=== PATIENT | male | born 1950 | race Caucasian/White ===

== ENCOUNTER → 2019-12-03 15:01 | Outpatient (BNVA) | payer MEDICARE, MEDICAID, SELFPAY | PROVIDERS: Family Provider Nurse Practitioner Family; PCP Nurse Practitioner Family; Visit Provider Family Medicine | DX: R05 Cough (principal); J10.1 Influenza due to other identified influenza virus with other respiratory manifestations; J44.9 Chronic obstructive pulmonary disease, unspecified | CPT/HCPCS: 71046; 87804 ==

== ENCOUNTER 2020-07-06 10:43 | Observation (INO) | payer MEDICARE, MEDICAID, SELFPAY ==
[2020-07-06] VITALS (13 sets, daily range): BP systolic 104–124; BP diastolic 54–80; PULSE 71–90; RESP 17–22; TEMP 36.7–36.9; O2SAT 84–100; BMI 20.2
--- NOTE | 2020-07-06 10:49 | ECG_ITS ---
[facility] Test Date: 2020-07-06 Pat Name: Andre Ramon Department: Room: Gender: Male Print Washer: : 1950 Requested By: Jarad Coffman Order Number: [id number] Michael MD: Eben Flores M.D. Measurements Intervals [place] Rate: 88 P: 85 CT: 143 QRS: -74 QRSD: 128 T: 85 QT: 354 QTc: 429 Interpretive Statements SINUS RHYTHM WITH SINUS ARRHYTHMIA RIGHT BUNDLE BRANCH BLOCK [120+ ms QRS DURATION, UPRIGHT V1, 40+ ms S IN I/aVL/V4/V5/V6] LEFT ANTERIOR FASCICULAR BLOCK [QRS AXIS <= -45, QR IN I, RS IN II] POSSIBLE SEPTAL MYOCARDIAL INFARCTION , PROBABLY OLD [30 ms Q WAVE IN V1/V2] Compared to ECG 05/26/2019 21:24:38 Right bundle-branch block now present Myocardial infarct finding now present Ventricular premature complex(es) no longer present Electronically Signed On 07-06-2020 20:53:54 CDT by Eben Flores M.D. [id number]
--- NOTE | 2020-07-06 10:50 | XR_ITS ---
WS: [id number] CHEST XRAY TECHNIQUE: Portable chest. CLINICAL INFORMATION: dyspnea/cough COMPARISON: December 03, 2019 FINDINGS: Heart: Normal cardiac silhouette. Lungs: Hyperinflation with flattening of the hemidiaphragms. Chronic emphysematous changes. Interstit ial thickening in the left mid and lower lungs. Interstitial infiltrate left lower lobe similar to [facility] 2019. Bones: Normal visualized bony structures. XR/XR chest 1V portable [id number] IMPRESSION: 1. Hyperinflation with emphysematous change and flattening of the hemidiaphrag ms. 2. Interstitial thickening in the left mid and lower lung similar to December 03, 2019. 3. Left lower lobe infiltrate similar in appearance to December 03, 2019 4. No definite new infiltrates.
[2020-07-06 11:11] LABS: ABG PH Result 7.34 (7.35-7.45); Base Excess ABG 9.1 mmol/L (-2.0-2.0); Blood Gas Allen Test Pos; Blood Gas Sample Type Arterial; Carboxyhemoglobin 2.1 %THgb (0.4-20.1); HCO3 ABG 37.7 mmol/L (22-26); HGB O2 Sat 92.9 % (95-100); Ionized Calcium Level - ABG 1.2 mmol/L (1.1-1.4); Methemoglobin 0.7 % (0.4-1.5); Oxygen Saturation ABG 95.6; Potassium Level - ABG 4.3 mmol/L (3.5-5.0)
[2020-07-06 11:12] LABS: Blood Gas Operator Identificat BL; Blood Gas Sample Site Brachial, right; Oxygen Device NC
[2020-07-06 11:13] LABS: ABG PCO2 69.2 mmHg (35-45)
[2020-07-06 11:18] LABS: Basophils % 0.3 %; Eosinophils # 0.1 10^3/uL (0.0-0.8); Eosinophils % 0.5 %; Hematocrit 45.5 % (42.0-52.0); Lymphocytes # 0.9 10^3/uL (0.8-4.8); Lymphocytes % 6.6 %; Mean Corpuscular HGB Conc 30.8 g/dL (30.0-36.0); Mean Corpuscular Hemoglobin 30.1 pg (28.0-34.0); Mean Corpuscular Volume 97.8 fL (80-94); Monocytes # 1.3 10^3/uL (0.2-0.9); Monocytes % 9.9 %; Neutrophils # 10.65 10^3/uL (1.8-7.7); Neutrophils % 82.3 %; Nucleated Red Blood Cells % 0 %; Platelet Count 223 10^3/cmm (130-400); Red Blood Count 4.65 10^6/uL (4.1-5.3); Red Cell Distribution Width 13.2 % (12.1-15.1)
[2020-07-06 11:51] LABS: Alanine Aminotransferase 42 U/L (0-41); Albumin Level 4.2 g/dL (3.5-5.2); Alkaline Phosphatase 147 IU/L (40-130); Anion Gap 11.6 (5-19); Aspartate Amino Transferase 34 U/L (0-40); Blood Urea Nitrogen 9 mg/dL (8-23); Calcium 9.5 mg/dL (8.5-10.5); Carbon Dioxide 35 mmol/L (22-29); Chloride 97 mmol/L (98-107); Globulin 3.1 g/dL (1.3-4.6); Glomerular Filtration Rate 133.2 mL/min (90-130); Glucose 158 mg/dL (65-115); Osmolality Calculated 290 mOsm/kg (285-295); Potassium 4.6 mmol/L (3.5-5.1); Sodium 139 mmol/L (136-145); Total Bilirubin 0.4 mg/dL (0.15-1.2); Total Protein 7.3 g/dL (6.6-8.7)
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
--- NOTE | 2020-07-06 16:30 | PC.NURSE ---
Patient arrived to CSU from ER at 1600. Patient oriented to room and call light. VSS. See physical assessment.
[2020-07-06] MEDS: sodium chloride 0.9% 1,000 ML 50 ML IV (16:33)
[2020-07-06] MEDS: heparin 5,000 unit/mL INJ 1 mL 5000 UNIT SUBCUT (16:36)
[2020-07-06] MEDS: HYDROmorphone 1 mg/mL INJ 1 mL 0.5 MG IVP ×2 (16:37→22:30)
[2020-07-06 16:39] LABS: Lactic Sepsis W/Reflex 2.2 mmol/L (0.5-2.2)
[2020-07-06 18:08] LABS: Reflex Lactate Order REFLEX LACTIC ORDERD
--- NOTE | 2020-07-06 18:29 | PC.NURSE ---
Verbal order received from Dr. Curtis for patient to receive mucomyst and duonebs on q6h schedule. Patient is to receive them alternating so that he is receiving one every 3 hours. RBVO. Physician requests to be notified if patient develops stridor or has increased swelling, RBVO. RT has been notified of medication changes. Nurse to continue to monitor.
[2020-07-06 18:32] LABS: Amphetamines Screen Urine Negative (Negative); Barbiturates Screen Urine Negative (Negative); Benzodiazepines Screen Urine Negative (Negative); Cocaine Screen Urine Negative (Negative); Opiate Screen Urine Negative (Negative); PCP Screen Urine Negative (Negative); THC Screen Urine Positive (Negative)
[2020-07-06 19:18] LABS: Lactic Acid level (Lactate) 2.2 mmol/L (0.5-2.2)
[2020-07-06] MEDS: silver sulfadiazine cream 1% 50 gm 1 APPLIC TOPICAL (19:53)
[2020-07-06] MEDS: ipratropium-albuterol 3 mL Neb INHALATION (22:35)
--- NOTE | 2020-07-06 23:24 | PC.NURSE ---
Spoke with Dr. Belcher regarding patient. He stated if patient becomes confused throughout the night to try him on bipap and see if his mentation improves. Patient is currently alert and oriented x4. Read back verbal order.
[2020-07-07] VITALS (16 sets, daily range): BP systolic 100–133; BP diastolic 60–83; PULSE 67–86; RESP 16–22; TEMP 36.3–36.8; O2SAT 93–100
[2020-07-07] MEDS: heparin 5,000 unit/mL INJ 1 mL 5000 UNIT SUBCUT ×2 (03:54→15:40)
[2020-07-07 04:15] LABS: ABG PH Result 7.32 (7.35-7.45); Arterial Blood Gas Hematocrit 41.8 % (42-52); Base Excess ABG 9.3 mmol/L (-2.0-2.0); Blood Gas Operator Identificat HARKR; Blood Gas Sample Site Brachial, right; Blood Gas Sample Type Arterial; HCO3 ABG 38.5 mmol/L (22-26); Oxygen Device CAG
--- NOTE | 2020-07-07 04:19 | XR_ITS ---
WS: [id number] XR chest 1V portable [id number] REASON FOR EXAM: ASSESS PARENCHYMAL CHANGES FINDINGS: Costophrenic angles are not included on the examination. Marked flattening of the hemidiaphragms. Coarse interstitial changes in both lower lungs with increased lucency in the upper lung zarate most notably on the right. The chest is unchanged compared to the previous examination with no acute abnormality identified. XR/XR chest 1V portable [id number] IMPRESSION: Stable abnormal chest, chronic.
[2020-07-07 05:18] LABS: Basophils % 0.1 %; Hematocrit 46.1 % (42.0-52.0); Hemoglobin 14.2 g/dL (11.7-16.6); Lymphocytes # 0.4 10^3/uL (0.8-4.8); Lymphocytes % 5.2 %; Mean Corpuscular HGB Conc 30.8 g/dL (30.0-36.0); Mean Corpuscular Hemoglobin 29.6 pg (28.0-34.0); Mean Platelet Volume 10.6 fL (7.4-10.4); Monocytes # 0.2 10^3/uL (0.2-0.9); Monocytes % 1.9 %; Neutrophils # 7.27 10^3/uL (1.8-7.7); Neutrophils % 92.4 %; Nucleated Red Blood Cells % 0 %; Platelet Count 213 10^3/cmm (130-400); Red Cell Distribution Width 12.8 % (12.1-15.1); White Blood Count 7.9 10^3/uL (4.0-10.0)
--- NOTE | 2020-07-07 05:36 | PC.NURSE ---
End of shift: Patient states he feels much better and states he feels less swollen. Patient has rested well this shift and has denied any pain. Patient has no needs at this time.
[2020-07-07 05:48] LABS: Magnesium 2.3 mg/dL (1.7-2.3); Phosphorus 4.2 mg/dL (2.5-4.5)
[2020-07-07 05:49] LABS: Anion Gap 14.5 (5-19); Blood Urea Nitrogen 18 mg/dL (8-23); Calcium 9.3 mg/dL (8.5-10.5); Carbon Dioxide 30 mmol/L (22-29); Chloride 97 mmol/L (98-107); Glomerular Filtration Rate 164.4 mL/min (90-130); Glucose 240 mg/dL (65-115); Lactate (Lactic Acid level) 2.8 mmol/L (0.5-2.2); Osmolality Calculated 294 mOsm/kg (285-295); Potassium 4.5 mmol/L (3.5-5.1); Sodium 137 mmol/L (136-145)
[2020-07-07] MEDS: ipratropium-albuterol 3 mL Neb INHALATION ×3 (08:11→21:55)
--- NOTE | 2020-07-07 09:45 | PC.RESP ---
SMOKING CESSATION INFORMATION SENT TO PATIENT.
[2020-07-07 10:02] LABS: ABG PCO2 75.3 mmHg (35-45)
[2020-07-07] MEDS: silver sulfadiazine cream 1% 50 gm 1 APPLIC TOPICAL ×2 (10:58→17:27)
[2020-07-07] MEDS: sodium chloride 0.9% 1,000 ML 50 ML IV (11:04)
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
[2020-07-07] MEDS: tetanus-dipt-pertussis 0.5 mL SDV IM (12:41)
--- NOTE | 2020-07-07 14:05 | PC.CHAP ---
Pastoral Care Encounter/Spiritual Assessment Type of Contact [] Declined senior power plant operator visit [] Patient/Family/Request visit [] Outpatient visit [] Follow-up visit [] Physician referral [] Code/Alert [X] Routine visit [] Staff referral [] Actively dying [] Patient sleeping [] Family support [] [] Out of room [] Palliative care [] [] Receiving care in room [] Pre-surgical visit [] Trauma [] Long length of stay [] ICU visit [] Other: Relational/Emotional Strength [] Patient feels connected with others/family/visitors/staff [] Distress [] Loneliness/isolation [] Abandonment Spirituality of Patient [] Person of Valerie [] Attends Confucianism of their Valerie [] Believes in Prayer [] Reads Bible or Denominational materials [] There are Spiritual issues to be addressed Market Risk Manager Interventions [] Prayer [] Active listening [] Non-anxious presence [] Spiritual/emotional support [] Crisis/trauma care [] Spiritual counseling [] Bereavement support [] Provided bereavement packet [] Provided Bible/devotional materials [] Provided toy/stuffed animal, coloring book to patient or family member [] Provided Communion [] Anointing/[place] [] Salvation [] Completed spiritual assessment [] Other: Impact on Illness or Injury [] Angry [] Fearful [] Anxious [] Often cries [] Exhaustion [] Unable to work [] Unable to attend hinduism [] Unable to walk/stand [] Unable to read [] Unable to drive [] Unable to eat/drink [] Unable to sleep [] Unable to be with family [] Patient intubated [] Other: Summary Time spent with patient
[2020-07-07] MEDS: acetaminophen 325 mg Tablet 650 MG PO ×2 (15:49→23:49)
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
[2020-07-07] MEDS: pantoprazole DR 40 mg Tablet PO (18:15)
[2020-07-08] VITALS (9 sets, daily range): BP systolic 99–131; BP diastolic 64–96; PULSE 64–81; RESP 17–24; TEMP 36.6–36.8; O2SAT 93–99
[2020-07-08] MEDS: HYDROmorphone 1 mg/mL INJ 1 mL 0.5 MG IVP (03:21)
[2020-07-08] MEDS: heparin 5,000 unit/mL INJ 1 mL 5000 UNIT SUBCUT ×2 (03:59→15:31)
[2020-07-08 05:05] LABS: Lactate (Lactic Acid level) 1.8 mmol/L (0.5-2.2)
[2020-07-08] MEDS: silver sulfadiazine cream 1% 50 gm 1 APPLIC TOPICAL ×2 (08:50→17:32)
[2020-07-08] MEDS: pantoprazole DR 40 mg Tablet PO (08:50)
[2020-07-08] MEDS: ipratropium-albuterol 3 mL Neb INHALATION (09:55)
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
[2020-07-08] MEDS: acetaminophen 325 mg Tablet 650 MG PO (15:28)
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
== END 2020-07-08 18:55 | disposition home or self-care (01) ==
LOC: ER 10:57 → CSU 15:30
PROVIDERS: Admitting Provider Internal Medicine Pulmonary Disease; Emergency Provider Family Medicine; PCP Family Medicine; Visit Provider Internal Medicine Pulmonary Disease
DX: J44.9 Chronic obstructive pulmonary disease, unspecified (principal); H53.9 Unspecified visual disturbance; T27.3XXA Burn of respiratory tract, part unspecified, initial encounter; F15.11 Other stimulant abuse, in remission; T20.20XA Burn of second degree of head, face, and neck, unspecified site, initial encounter; T20.00XA Burn of unspecified degree of head, face, and neck, unspecified site, initial encounter; T20.10XA Burn of first degree of head, face, and neck, unspecified site, initial encounter; Z99.81 Dependence on supplemental oxygen; F17.210 Nicotine dependence, cigarettes, uncomplicated; Z79.82 Long term (current) use of aspirin
CPT/HCPCS: 12345; 36415; 36600; 71045; 80048; 80051; 80053; 80306; 82803; 82810; 83605; 83735; 83986; 84100; 85025; 90471; 90715; 93005; 94640; 94660; 96360; 96361; 96372; 96374; 96375; 99282; 99285; G0378; J1170; J1644; J2920; J2930; J7030; J7608; J7611